=== PATIENT | female | born 1985 | race African-American/Black ===

== ENCOUNTER 2016-12-21 12:41 | Emergency (ER) | payer SELFPAY ==
--- NOTE | 2016-12-21 12:47 | ER Document Report ---
ED Medical Screen (RME) - General Stated Complaint: HEACHACHE Time seen by provider: 13:03 Mode of Arrival: Medic Information source: Patient Notes: 31-year-old female presents to ED for Headache for 2 weeks saw urgent care last week. Taken regularly with relief. States today the pain headache is worsened then it has ever been and the fiorcet is not helping. States she has not taken for years that this morning because she got up to get something to eat and take if your set and the pain got too excruciating. Pain is in the forehead more to the right today. Last menstrual period at the beginning of this month I have greeted and performed a rapid initial assessment of this patient. A comprehensive ED assessment and evaluation of the patient, analysis of test results and completion of medical decision making process will be conducted by an additional ED providers.
[2016-12-21] MEDS ORDERED: DIPHENHYDRAMINE HCL 50 MG CAPSULE PO ONE (13:06)
[2016-12-21] MEDS ORDERED: PROCHLORPERAZINE MALEATE 10 MG TABLET PO ONE (13:06)
[2016-12-21] MEDS ORDERED: IBUPROFEN 800 MG TABLET PO ONE (13:06)
--- NOTE | 2016-12-21 15:38 | ER Document Report ---
Addendum entered and electronically signed by AARON JOHN NP 12/22/16 07:50 : Course - Re-evaluation Re-evalutation: 12/22/16 07:49 I spoke with her dad this am, she is now in surgery with dr. vo for shunt placement. - Vital Signs Vital signs: Temp Pulse Resp BP Pulse Ox 98.8 F 63 18 141/96 H 100 12/21/16 19:09 12/21/16 19:42 12/21/16 19:44 12/21/16 19:42 12/21/16 19:42 - Laboratory Result Diagrams: 12/21/16 16:55 12/21/16 16:55 Laboratory results interpreted by me: 12/21/16 12/21/16 16:55 16:55 MCV 79 L MCH 25.2 L MCHC 31.9 L RDW 14.7 H Seg Neutrophils % 84.0 H Lymphocytes % 12.0 L Total Protein 9.1 H Addendum entered and electronically signed by AARON JOHN NP 12/21/16 20:33 : Course - Re-evaluation Re-evalutation: 12/21/16 20:33 pt waves of headache, still oriented and alert when talking with her. vitals stable. - Vital Signs Vital signs: Temp Pulse Resp BP Pulse Ox 98.8 F 63 18 141/96 H 100 12/21/16 19:09 12/21/16 19:42 12/21/16 19:44 12/21/16 19:42 12/21/16 19:42 - Laboratory Result Diagrams: 12/21/16 16:55 12/21/16 16:55 Laboratory results interpreted by me: 12/21/16 12/21/16 16:55 16:55 MCV 79 L MCH 25.2 L MCHC 31.9 L RDW 14.7 H Seg Neutrophils % 84.0 H Lymphocytes % 12.0 L Total Protein 9.1 H Original Note: ED Headache - General Chief Complaint: Headache Stated Complaint: HEACHACHE Time seen by provider: 15:38 Mode of Arrival: Medic Information source: Patient, Parent Notes: 31 yo female visiting from [place] with parents, c/o gradual onset throbbing headache since 13-17 pain. At 11:00 when got up to get something to eat, felt nauseated and the throbbing headache pain was so overwhelming she fell (no injury) She was telling mom that the pressure in her head was moving frontal to the left side, bridge of nose. BOLDEN level now 2.5/5 Was given fiorocet and seen 2 times in [facility] since onset. No fever. Abstinent. Never seen neurologist. This was the worst pain of BOLDEN she has ever had. No hx migraines. See "television type static" peripherally when the throbbing starts similar peripheral changes with BOLDEN in the past. Intermittent vertigo this week and mom noticed leaning when walking. No URI sx. No neck pain. No vomiting or diarrhea. - Related Data Allergies/Adverse Reactions: No Known Allergies Allergy (Unverified 12/21/16 13:05) Past Medical History - General Information source: Patient - Social History Smoking Status: Never Smoker Chew tobacco use (# tins/day): No Frequency of alcohol use: Occasional Drug Abuse: Marijuana Lives with: Spouse/Significant other Family History: Reviewed & Not Pertinent Patient has suicidal ideation: No Patient has homicidal ideation: No - Medical History Medical History: Negative Renal/ Medical History: Denies: Hx Peritoneal Dialysis Surgical Hx: Negative Review of Systems - Review of Systems Constitutional: No symptoms reported. denies: Fever EENT: No symptoms reported Cardiovascular: No symptoms reported Respiratory: No symptoms reported Gastrointestinal: No symptoms reported Genitourinary: No symptoms reported Female Genitourinary: No symptoms reported Musculoskeletal: No symptoms reported Skin: No symptoms reported Hematologic/Lymphatic: No symptoms reported Neurological/Psychological: See HPI Physical Exam - Vital signs Vitals: Temp Pulse Resp BP Pulse Ox 98.0 F 79 18 126/79 H 100 12/21/16 12:57 12/21/16 12:57 12/21/16 12:57 12/21/16 12:57 12/21/16 12:57 Interpretation: Normal - General General appearance: Appears well, Alert In distress: None - HEENT Head: Normocephalic, Atraumatic Eyes: Normal Extraocular movements intact: Yes Pupils: PERRL Nerve palsy: No Tympanic membrane: Normal Mouth/Lips: Normal Mucous membranes: Normal Pharynx: Normal Neck: Supple. No: Kernig's, Meningismus - Respiratory Respiratory status: No respiratory distress Chest status: Nontender Breath sounds: Normal Chest palpation: Normal - Cardiovascular Rhythm: Regular Heart sounds: Normal auscultation Murmur: No - Abdominal Inspection: Normal Distension: No distension Bowel sounds: Normal Tenderness: Nontender Organomegaly: No organomegaly - Back Back: Normal, Nontender. No: CVA tenderness - Extremities General upper extremity: Normal inspection, Nontender, Normal color, Normal ROM , Normal temperature General lower extremity: Normal inspection, Nontender, Normal color, Normal ROM , Normal temperature, Normal weight bearing. No: Tino's sign - Neurological Neuro grossly intact: Yes Cognition: Normal Orientation: AAOx4 [place] Coma Scale Eye Opening: Spontaneous [place] Coma Scale Verbal: Oriented [place] Coma Scale Motor: Obeys Commands [place] Coma Scale Total: 15 Speech: Normal Motor strength normal: LUE, RUE, LLE, RLE Sensory: Normal - Psychological Associated symptoms: Normal affect, Normal mood - Skin Skin Temperature: Warm Skin Moisture: Dry Skin Color: Normal Skin irregularity: negative: Rash Course - Re-evaluation Re-evalutation: 12/21/16 16:42 BOLDEN 3/5, up to bathroom, IV not began yet. Blood not drawn. 12/21/16 16:53 I have consulted with the supervisory physician Dr. Aponte per [facility] Guidelines., Spoke with Dr. Cox the radiologist and she recommended an MRI head with and without contrast. 12/21/16 17:22 BOLDEN 3/5, more morphine ordered. 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 england will accept the pt, he is checking for SICU bed since no NSU beds, will call back. I will ask about IV fluid, whether she can eat. headache 4.5, trying hydromorphone. 12/21/16 19:58 pt has room assignment at [facility] 419, BOLDEN 5/5, dilaudid 1mg ordered. 12/21/16 20:07 [facility] be here in 25 minutes to take pt to [facility] and dayday [place] with that. Calling Dr. England back to find out if the patient needs IV fluid, nothing by mouth status, or can she eat. Dr. England callback recommends Decadron 10 mg IV, keep her nothing by mouth, normal saline 125 an hour. And he is okay with ground transport. Heat application to forehead is helping with the episodic episodes of intense pain that are not as bad as this am at 1100. 12/21/16 20:29 at pt bedside, HR 61, 100% O2, 23 rr, 135/88. Decadron given. - Vital Signs Vital signs: Temp Pulse Resp BP Pulse Ox 98.8 F 63 18 141/96 H 100 12/21/16 19:09 12/21/16 19:42 12/21/16 19:42 12/21/16 19:42 12/21/16 19:42 - Laboratory Result Diagrams: 12/21/16 16:55 12/21/16 16:55 Laboratory results interpreted by me: 12/21/16 12/21/16 16:55 16:55 MCV 79 L MCH 25.2 L MCHC 31.9 L RDW 14.7 H Seg Neutrophils % 84.0 H Lymphocytes % 12.0 L Total Protein 9.1 H Discharge - Discharge Clinical Impression: new-onset of hydrocephalus Headache Qualifiers: Headache type: unspecified Headache chronicity pattern: acute headache Intractability: intractable Qualified Code(s): R51 - Headache Condition: Stable Disposition: [facility] Referrals: SD BOSTON, CERTIFIED MEDICATION AIDE-C [Primary Care Provider] - Follow up as needed
[2016-12-21] MEDS ORDERED: NORMAL SALINE 1000 ML 1,000 ML IV ONE ×2 (15:51→20:16)
[2016-12-21] MEDS ORDERED: MORPHINE SULFATE 10 MG/ML INJ IV ONE ×2 (16:47→17:22)
[2016-12-21 17:09] LABS: ABSOLUTE MONOCYTES (AUTO) 0.3 10^3/uL (0.1-1.4); BASOPHILS % (AUTO) 0.3 % (0-2); HEMATOCRIT 37.9 % (36.0-47.0); HEMOGLOBIN 12.1 g/dL (12.0-15.5); HGB HCT DIFFERENCE -1.6; MEAN CORPUSCULAR HEMOGLOBIN 25.2 pg (27.0-33.4); MEAN CORPUSCULAR HGB CONC 31.9 g/dL (32.0-36.0); MEAN CORPUSCULAR VOLUME 79 fl (80-97); MONOCYTES % (AUTO) 3.7 % (3-13); RED BLOOD COUNT 4.79 10^6/uL (3.72-5.28); RED CELL DISTRIBUTION WIDTH 14.7 % (11.5-14.0); WHITE BLOOD COUNT 8.3 10^3/uL (4.0-10.5)
[2016-12-21 17:25] LABS: PARTIAL THROMBOPLASTIN TIME 24.5 SEC (23.5-35.8); PROTHROMBIN TIME 13.3 SEC (11.4-15.4)
[2016-12-21 17:30] LABS: ALANINE AMINOTRANSFERASE 20 U/L (9-52); ALBUMIN 4.3 g/dL (3.5-5.0); ALKALINE PHOSPHATASE 78 U/L (38-126); ANION GAP 11 (5-19); ASPARTATE AMINO TRANSFERASE 36 U/L (14-36); BILIRUBIN,TOTAL 0.6 mg/dL (0.2-1.3); BLOOD UREA NITROGEN 12 mg/dL (7-20); CALCIUM 9.5 mg/dL (8.4-10.2); CARBON DIOXIDE 23 mmol/L (22-30); CHLORIDE 105 mmol/L (98-107); CREATININE RESULT 0.88 mg/dL (0.52-1.25); GLUCOSE 95 mg/dL (75-110); POTASSIUM 4.2 mmol/L (3.6-5.0); SODIUM 139.4 mmol/L (137-145); TOTAL PROTEIN 9.1 g/dL (6.3-8.2)
[2016-12-21] MEDS ORDERED: HYDROMORPHONE HCL INJ/PF 2 MG/ML AMPULE IV ONE ×3 (19:27→20:39)
[2016-12-21 19:44] VITALS: BP 141/96
[2016-12-21] MEDS ORDERED: ONDANSETRON HCL INJ/PF 4 MG/2 ML SDV IV ONE (20:05)
[2016-12-21] MEDS ORDERED: DEXAMETHASONE SOD PHOS INJ 10 MG/1 ML VIAL IV ONE (20:15)
--- NOTE | 2016-12-21 20:39 | ER Document Report ---
Doctor's Note Notes: 12/21/16 20:37 Patient's history and physical exam reported to me by nurse practitioner Alba Brennan. I reviewed the findings of her CT scan of her brain and the MRI of her brain. I also evaluated the patient at her bedside for continuing headache. I have supervised the arrangement for transfer of the patient to [place] for care by the neurosurgeon chemical equipment controller there. Kaveh Mcdermott M.D. Supervising Physician (SUNITHA MCDERMOTT)
[2016-12-21] MEDS ORDERED: DIPHENHYDRAMINE HCL 50 MG/ML VIAL IV ONE (20:40)
== END 2016-12-21 20:35 | disposition short-term general hospital (02) ==
LOC: ER 12:41
DX: G91.9 Hydrocephalus, unspecified (principal); R51 Headache
CPT/HCPCS: 96376; 99285; 96374; 96375; 36415; 84703; 85025; 85610; 85730; 80053; 70553; 70450; A9577; J1200; J2270; J1170; S0183; J2405; J7030; J1100